=== PATIENT | female | born 1980 ===

== ENCOUNTER 2020-03-16 13:14 | Emergency (ER) | payer BC, OTHER ==
--- NOTE | 2020-03-16 13:57 | Event Note ---
ED Screening Note Date of service: 03/16/20 Time: 13:55 ED Screening Note: 39-year-old female presents to the emergency room stating she is approximately 8 weeks and is having vaginal bleeding today. Patient reports she is high risk. She is 3 para 0 with 2 miscarriages. Last menstrual period was 01/18/2020. Patient has had an initial ultrasound done and is followed by [place] [facility]. This initial assessment/diagnostic orders/clinical plan/treatment(s) is/are subject to change based on patients health status, clinical progression and re- assessment by fellow clinical providers in the ED. Further treatment and workup at subsequent clinical providers discretion. Patient/guardian urged not to elope from the ED as their condition may be serious if not clinically assessed and managed. Initial orders include:
[2020-03-16 14:40] LABS: Hematocrit 38.6 % (30.3-42.9); Hemoglobin 13.3 gm/dl (10.1-14.3); Mean Corpuscular HGB Conc 35 % (30-34); Mean Corpuscular Volume 90 fl (79-97); Platelet Count 264 K/mm3 (140-440); Red Blood Count 4.31 M/mm3 (3.65-5.03); Red Cell Distribution Width 13.8 % (13.2-15.2)
[2020-03-16 17:01] LABS: HCG Qualitative,Urine Positive (Negative)
--- NOTE | 2020-03-16 17:29 | Emergency Department Report ---
ED HPI - General Chief complaint: Vaginal Bleeding Stated complaint: 8 WEEKS VAGINAL BLEEDING Time Seen by Provider: 03/16/20 16:50 Source: patient, family Mode of arrival: Ambulatory Limitations: Language Barrier - History of Present Illness Initial comments: This is a 39-year-old female states that she is 8 weeks . She had her first visit with on March 14. Patient states at that time she was told that she may possibly have a miscarriage because of low heart rate of the feet. Patient now states that today around 11 AM she started having abdominal pain vaginal bleeding and low back pain she used 3 pads today and no clots. In the past patient has had 2 miscarriages she has no other co mplaints. MD Complaint: abdominal pain, vaginal bleeding, other - Related Data Previous Rx's Medication Instructions Recorded Last Taken Type Acetaminophen with Codeine 1 tab PO Q6HR PRN #15 tab 03/16/20 Unknown Rx [Acetaminophen-Codeine #4 TAB] Allergies Allergy/AdvReac Type Severity Reaction Status Date / Time No Known Allergies Allergy Unverified 03/16/20 13:50 ED Review of Systems ROS: Stated complaint: 8 WEEKS VAGINAL BLEEDING Other details as noted in HPI ED Past Medical Hx - Past Medical History Previous Medical History?: Yes Additional medical history: Miscarriage x 2 - Surgical History Past Surgical History?: Yes Hx Breast Surgery: Yes (Breast implants) Additional Surgical History: Right knee surgery - Social History Smoking Status: Never Smoker Substance Use Type: None - Medications Home Medications: Home Medications Medication Instructions Recorded Confirmed Last Taken Type Acetaminophen with Codeine 1 tab PO Q6HR PRN #15 tab 03/16/20 Unknown Rx [Acetaminophen-Codeine #4 TAB] ED Physical Exam - General Limitations: Language Barrier General appearance: alert, in no apparent distress - Head Head exam: Present: atraumatic - Eye Eye exam: Present: normal appearance - ENT ENT exam: Present: normal exam - Neck Neck exam: Present: normal inspection - Respiratory Respiratory exam: Present: normal lung sounds bilaterally - Cardiovascular Cardiovascular Exam: Present: regular rate, normal heart sounds - GI/Abdominal GI/Abdominal exam: Present: soft ED Course Vital Signs 03/16/20 13:46 Temperature 98.5 F Pulse Rate 70 Respiratory 14 Rate Blood Pressure 127/74 O2 Sat by Pulse 100 Oximetry - Reevaluation(s) Reevaluation #1: 03/16/20 19:51 Patient is in no acute distress. She is aware of ultrasound findings and the plan for follow-up and she agrees ED Medical Decision Making - Lab Data Result diagrams: 03/16/20 14:11 - Radiology Data Radiology results: report reviewed FINDINGS: GESTATIONAL SAC: Well-defined oval shape and intrauterine in location. Measures 2.2 cm with estimated gestational age of 7 weeks and 1 day. YOLK SAC: Multiple yolk sacs are seen. Clinical significance is uncertain at thi s time. EMBRYO/FETUS: pole is identified and demonstrates no significant abnormality. Unable to obtain crown-rump length or heartbeat at this time. ADNEXA: Anechoic focus on the left ovary measuring 2.6 cm could represent a cyst. Right ovary is not visualized. FREE FLUID: None. ADDITIONAL FINDINGS: Moderate amount of subchorionic fluid suggests a subchorionic bleed. IMPRESSION: 1. Well-defined gestational sac containing with well-defined pole. No heart rate is identified at this time. Estimated sonographic age of 7.1 weeks.days. Additionally, a moderate-sized subchorionic hemorrhage is visualized. Recommend clinical correlation and continued follow-up with serial beta hCG and ultrasound imaging, as warranted. - Medical Decision Making This is a 39-year-old female with a past medical history of 2 miscarriages she comes to the emergency room stating that she is 8 weeks she had her first visit visit on March [address] Abel Ornelas at that appointment patient states that there was no heartbeat found and she per ultrasound and that her hCG quant was about 14,000 patient has a follow-up appointment with Dr. Abel Ornelas on the which is Wednesday. Patient reports starting vaginal bleeding today at 11AM small amount she has only gone through 4 pads the entire day. She complains of lower back pain and just abdominal cramping. hCG quant is currently 10,803. Hemoglobin 13.3 hematocrit 38.6 Transvaginal ultrasound shows Well-defined gestational sac containing with well-defined pole. No heart rate is identified at this time. Estimated sonographic age of 7.1 weeks.days. Additionally, a moderate-sized subchorionic hemorrhage is visualized. Recommend clinical correlation and continued follow-up with serial beta hCG and ultrasound imaging, as warranted. I discussed with the attending ER physician Dr. Anderson Alarcon he agrees that patient should be discharged home with the understanding that she must follow-up with her OB on Wednesday as scheduled patient is also aware that there were no heart tones and that she is most likely miscarrying and possibly will need a D&C which can be determined by her [employer] . Patient verbalizes understanding she is speaking and all communication was done via telephone manager banking ID number [id number] Critical Care Time: No Critical care attestation.: If time is entered above; I have spent that time in minutes in the direct care of this critically ill patient, excluding procedure time. ED Disposition Clinical Impression: Threatened in early Disposition: TO HOME OR SELFCARE Is pt being admited?: No Does the pt Need Aspirin: No Condition: Stable Instructions: Vaginal Bleeding During , First Trimester, Threatened Miscarriage, [id number] Additional Instructions: You must follow-up with your [employer] doctor on Wednesday as scheduled take Tylenol with codeine as prescribed for pain. If you develop increased bleeding that is going through 2-4 pads per hour or worsening pain please return to the emergency room otherwise follow-up with Dr. Doc Ornelas [phone] as scheduled for Wednesday. Prescriptions: Acetaminophen with Codeine [Acetaminophen-Codeine #4 TAB] 1 tab PO Q6HR PRN #15 tab PRN Reason: Pain , Severe (7-10) Referrals: PRIMARY CARE, [Primary Care Provider] - 3-5 Days Time of Disposition: 19:55
--- NOTE | 2020-03-16 18:55 | Ultrasound Report ---
ULTRASOUND OBSTETRIC INDICATION / CLINICAL INFORMATION: vaginal bleeding 8 weeks . Clinical Gestational Age (GA): 8.2 weeks.days TECHNIQUE: Transabdominal and Transvaginal. COMPARISON: None available. FINDINGS: GESTATIONAL SAC: Well-defined oval shape and intrauterine in location. Measures 2.2 cm with estimated gestational age of 7 weeks and 1 day. YOLK SAC: Multiple yolk sacs are seen. Clinical significance is uncertain at this time. EMBRYO/FETUS: pole is identified and demonstrates no significant abnormality. Unable to obtain crown-rump length or heartbeat at this time. ADNEXA: Anechoic focus on the left ovary measuring 2.6 cm could represent a cyst. Right ovary is not visualized. FREE FLUID: None. ADDITIONAL FINDINGS: Moderate amount of subchorionic fluid suggests a subchorionic bleed. IMPRESSION: 1. Well-defined gestational sac containing with well-defined pole. No heart rate is ident ified at this time. Estimated sonographic age of 7.1 weeks.days. Additionally, a moderate-sized subch orionic hemorrhage is visualized. Recommend clinical correlation and continued follow-up with serial beta hCG and ultrasound imaging, as warranted. Signer Name: Henrique Elias MD Signed: 03/16/2020 6:50 PM Workstation Name: [id number]
[2020-03-16] MEDS ORDERED: oxyCODONE /ACETAMINOPHEN 5-325MG TAB PO ONE (19:52)
[2020-03-16 22:34] VITALS: BP 127/82
== END 2020-03-16 20:58 | disposition home or self-care (01) ==
LOC: ED 13:14
DX: O20.0 Threatened abortion (principal); Z98.890 Other specified postprocedural states; Z79.899 Other long term (current) drug therapy; Z3A.08 8 weeks gestation of pregnancy
CPT/HCPCS: 36415; 76801; 76817; 81025; 84702; 85027; 86900; 86901